=== PATIENT | male | born 1965 | race Caucasian/White ===

== ENCOUNTER 2017-06-29 07:09 | Inpatient (IN) | payer OTHER ==
[~2017-06-29] VITALS: Ht 188 cm; Wt 130.7 kg
[2017-06-29 07:48] LABS: ISTAT CREATININE 0.8 mg/dl (0.6-1.3); ISTAT IONIZED CALCIUM 1.13 mmol/l (1.12-1.32); ISTAT POTASSIUM 4.2 mEq/L (3.3-5.0)
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
[2017-06-29] MEDS ORDERED: SODIUM CHLORIDE 0.9% 1000ML 1,000 ML IV STA (08:05)
[2017-06-29] MEDS ORDERED: FENTANYL CITRATE INJ 50 MCG/1 ML 2 ML VIAL IV STA (08:05)
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
[2017-06-29] MEDS ORDERED: OPTIRAY 320 IV PRN (08:15)
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
[2017-06-29] MEDS ORDERED: BLOOD PRESSURE MED PO (08:33)
[2017-06-29] MEDS ORDERED: CLOP1TAB15 PO (08:33)
[2017-06-29] MEDS ORDERED: NVLNI SQ (08:33)
[2017-06-29] MEDS ORDERED: ASPI81TA28 PO (08:33)
[2017-06-29] MEDS ORDERED: METFORMIN PO (08:33)
[2017-06-29 08:34] LABS: BASO % 0.3 %; BASO ABS # 0.03 K/uL (0-0.2); EOS % 0.8 %; EOS ABS # 0.09 K/uL (0-0.5); HEMATOCRIT 43.4 % (42-52); HEMOGLOBIN 15.4 g/dL (14.0-18.0); IG# 0.11 K/uL (0.00-0.02); LYMPH % 13.7 %; LYMPH ABS # 1.58 K/uL (1.2-3.4); MEAN CELL VOLUME 82.7 fL (80-100); MEAN CORPUSCULAR HEMOGLOBIN 29.3 pg (25-34); MEAN CORPUSCULAR HGB CONC 35.5 g/dl (32-36); MEAN PLATELET VOLUME 9.6 fL (7.4-10.4); MONO % 4.4 %; MONO ABS # 0.51 K/uL (0.11-0.59); NEUT % 79.8 %; NEUT ABS # 9.24 K/uL (1.4-6.5); PLATELET COUNT 239 K/uL (130-400); RED CELL DISTRIBUTION WIDTH CV 12.2 % (11.5-14.5); RED CELL DISTRIBUTION WIDTH SD 36.8 fL (36.4-46.3); WHITE BLOOD COUNT 11.56 K/uL (4.8-10.8)
[2017-06-29] MEDS ORDERED: KETOROLAC TROMETHAMINE 60 MG/2 ML VIAL IM STA (08:42)
[2017-06-29 08:45] LABS: PTT PATIENT 24.5 SECONDS (21.0-31.0)
[2017-06-29] MEDS ORDERED: HYDR-3419 PO (08:48)
[2017-06-29] MEDS ORDERED: CYCL5TAB PO (08:48)
[2017-06-29 08:54] LABS: ALBUMIN 3.5 gm/dl (3.4-5.0); CALCIUM 8.2 mg/dl (8.5-10.1); CREATININE 0.88 mg/dl (0.60-1.40); TOTAL PROTEIN 6.8 gm/dl (6.4-8.2)
[2017-06-29] MEDS ORDERED: INSULIN HUMAN REGULAR SC SCH (09:15)
[2017-06-29] MEDS ORDERED: LOSA1TAB38 PO (09:21)
[2017-06-29] MEDS ORDERED: PANT40TA PO (09:21)
[2017-06-29] MEDS ORDERED: METO-157 PO (09:21)
[2017-06-29] MEDS ORDERED: METF1000 PO (09:21)
[2017-06-29] MEDS ORDERED: METO50TA8 PO (09:21)
[2017-06-29] MEDS ORDERED: ATOR-24 PO (09:21)
[2017-06-29] MEDS ORDERED: METF-384 PO (09:21)
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
[2017-06-29] MEDS ORDERED: ACETAMINOPHEN 325 MG TAB PO PRN (10:15)
[2017-06-29] MEDS ORDERED: PHARMACY GLYCEMIC MGMT CONSULT PRN (10:28)
[2017-06-29] MEDS ORDERED: GLUCOSE 10 TABS/TUBE PO PRN (10:30)
[2017-06-29] MEDS ORDERED: DEXTROSE 50% 50 ML SYR IV PRN (10:30)
[2017-06-29] MEDS ORDERED: LABETALOL HCL IV 5 MG/ML 20ML IV PRN (10:30)
[2017-06-29] MEDS ORDERED: OXYCODONE/ACETAMINOPHEN 5-325 TAB PO PRN (10:30)
[2017-06-29] MEDS ORDERED: GLUCAGON FOR INJ 1 MG VIAL SQ PRN (10:30)
[2017-06-29] MEDS ORDERED: FAMOTIDINE IV INJ 20 MG in DEXTROSE 5% 100ML 100 ML IV PRN (10:30)
[2017-06-29] MEDS ORDERED: GLUCOSE 40% GEL 15 GM TUBE PO PRN (10:30)
[2017-06-29] MEDS ORDERED: MoRPHine SULFATE 2 MG/ML CARP IV PRN (10:30)
[2017-06-29 10:39] VITALS: BP 175/98; PULSE 103; TEMP 36.9; O2SAT 97; Ht 188 cm; Wt 130.7 kg
[2017-06-29] MEDS ORDERED: PROMETHAZINE HCL INJ 12.5 MG in SODIUM CHLORIDE 0.9% 50ML 50 ML IV PRN (10:45)
[2017-06-29] MEDS ORDERED: FAMOTIDINE IV INJ 20 MG in SYRINGE 3 ML IV PRN (11:30)
[2017-06-29] MEDS ORDERED: SODIUM CHLORIDE 0.9% 1000ML 1,000 ML IV ONE (11:30)
[2017-06-29] MEDS ORDERED: INSULIN HUMAN NPH SC ONE (11:45)
--- NOTE | 2017-06-29 12:07 | Pharmacy Progress Note ---
Glycemic Control Intl Consult Date of Service Jun 29, 2017. Scope Glycemic Pharmacist consulted by Dr iPerre on 06/29/17 for glycemic control and to write orders per [facility] inpatient glycemic control protocol Objective Weight (Kilograms): 130.700 Accuchecks BSG (last 24hrs): Test 06/29/17 08:16 06/29/17 11:45 Random Glucose 348 mg/dl (70-99) Bedside Glucose 301 mg/dl (70-99) Laboratory Data (last 24hrs) Test 06/29/17 07:35 06/29/17 08:16 Anion Gap 16.0 mmol/L 10.0 mmol/L BUN/Creatinine Ratio 10.0 Blood Urea Nitrogen 9 mg/dl Creatinine 0.88 mg/dl Potassium Level mmol/L Sodium Level 133 mmol/L White Blood Count 11.56 K/uL Red Blood Count 5.25 M/uL Hemoglobin 15.4 g/dL Hematocrit 43.4 % Mean Corpuscular Volume 82.7 fL Mean Corpuscular Hemoglobin 29.3 pg Mean Corpuscular Hemoglobin Concent 35.5 g/dl Platelet Count 239 K/uL Mean Platelet Volume 9.6 fL Neutrophils (%) (Auto) 79.8 % Lymphocytes (%) (Auto) 13.7 % Monocytes (%) (Auto) 4.4 % Eosinophils (%) (Auto) 0.8 % Basophils (%) (Auto) 0.3 % Neutrophils # (Auto) 9.24 K/uL Lymphocytes # (Auto) 1.58 K/uL Monocytes # (Auto) 0.51 K/uL Eosinophils # (Auto) 0.09 K/uL Basophils # (Auto) 0.03 K/uL HbA1c pending for 06/30/17 AM Recent Pertinent Medications Outpatient Anti-diabetic Regimen: * NPH 50 units SQ BID * Metformin 1,000mg PO QAM + 1,500mg PO QPM The patient is currently receiving: * Basal insulin: Lantus 5 units every 12 hours * Correctional Insulin: Novolog Correction per scale ACHS Goal Range: Low 120 mg/dL - High 160 mg/dL Correction Factor: 35 mg/dL/unit * Prandial insulin: Per carb ratio of 1 unit per 10 grams CHO consumed * Oral Agents: on hold for admission Assessment & Plan ASSESSMENT: * 51yo T2DM male with unknown degree of outpatient control. No recent A1c recorded. On order for tomorrow with AM labs * Spoke with patient re: outpatient diabetes regimen. He stated that he did take his NPH this morning but he did not take his metformin * BSGs/GLU significantly elevated possibly d/t stress, pain, inadequate outpatient dosing? * Pt ordered a clear liquid diet which will most likely be a significant decrease in CHO as compared to outpatient diet. Insulin orders will need titrated cautiously. * Metformin will need held for a minimum of 48hrs since patient received contrast 06/29/17. Will use NovoLog bolus insulin with CF/CR instead PLAN FOR INPATIENT GLYCEMIC CONTROL: * Holding outpatient oral diabetes medications * May resume 1-2 days prior to discharge as long as this is 48hrs after last dose of contrast * Basal insulin * Will continue NPH as basal insulin as this is what patient uses as an outpatient * Additional 20 units of NPH this AM for BSG >300 mg/dl * Then, NPH BID; dosing based on BSG for clear liquid diet and that outpatient NPH may be covering some prandial needs * BSG below 100 mg/dl --> 30 units * BSG 110-180 mg/dl --> 40 units * BSG above 180 mg/dl --> 50 units * Bolus insulin * NovoLog per scale ACHS or Q6hrs while NPO * Goal Range: Low 120 mg/dL - High 140 mg/dL * Correction Factor: 10 mg/dL/unit * Nutritional / Prandial insulin per carb ratio of 1 unit per 4 grams CHO consumed * Please note that the plan above was derived based on current level of insulin resistance and hospital stress. These recommendations are appropriate for inpatient admission only. Plan of care upon discharge will need to be reassessed to avoid potential outpatient hypo/hyperglycemia. Thank you.
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
[2017-06-29] MEDS ORDERED: FENTANYL CITRATE INJ 50 MCG/1 ML 2 ML VIAL IV PRN (12:15)
[2017-06-29] MEDS: OXYCODONE/ACETAMINOPHEN 5-325 TAB PO PRN ×3 (13:13→22:10)
[2017-06-29] MEDS: ATORVASTATIN 20 MG TAB PO SCH (13:16)
[2017-06-29] MEDS: INSULIN ASPART 100 UNITS/ML 3 ML PEN SC SCH ×3 (13:16→21:00)
[2017-06-29] MEDS: LOSARTAN POTASSIUM 50 MG TAB PO SCH (13:17)
[2017-06-29] MEDS: METOPROLOL SUCC 50MG EXT REL TAB PO SCH (13:17)
[2017-06-29] MEDS ORDERED: PERFLUTREN LIPID MICROSPHERE (DEFINITY) IV ONE (13:57)
[2017-06-29] MEDS ORDERED: COUGH DROP (SUGAR FREE) LOZ 24 LOZ/1 BOX LOZ ONE (14:52)
[2017-06-29] MEDS ORDERED: NURSING DECISION MEDICATION ORDER SCH (15:00)
[2017-06-29 15:09] VITALS: BP 162/91; PULSE 85; TEMP 37; O2SAT 95
[2017-06-29 15:30] VITALS: O2SAT 95
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
[2017-06-29] MEDS ORDERED: COUGH DROP (SUGAR FREE) LOZ 24 LOZ/1 BOX LOZ PRN (16:30)
[2017-06-29 16:45] LABS: INFLUENZA A PCR Neg for Influ A (NEG); INFLUENZA B PCR Neg for Influ B (NEG)
[2017-06-29 20:07] VITALS: BP 166/88; PULSE 86; TEMP 36.8; O2SAT 95
[2017-06-29] MEDS ORDERED: INSULIN HUMAN NPH SC SCH (21:00)
[2017-06-29] MEDS: INSULIN HUMAN NPH SC SCH (22:12)
[2017-06-30] VITALS (7 sets, daily range): BP systolic 161–177; BP diastolic 88–106; PULSE 84–88; TEMP 36.5–36.9; O2SAT 94–95
[2017-06-30] MEDS: OXYCODONE/ACETAMINOPHEN 5-325 TAB PO PRN ×3 (02:12→12:25)
[2017-06-30] MEDS: LOSARTAN POTASSIUM 50 MG TAB PO SCH (07:15)
[2017-06-30] MEDS: ATORVASTATIN 20 MG TAB PO SCH (07:15)
[2017-06-30] MEDS: METOPROLOL SUCC 50MG EXT REL TAB PO SCH (07:15)
[2017-06-30 07:49] LABS: BASO % 0.6 %; BASO ABS # 0.05 K/uL (0-0.2); EOS % 1.9 %; EOS ABS # 0.17 K/uL (0-0.5); HEMATOCRIT 40.4 % (42-52); HEMOGLOBIN 14.4 g/dL (14.0-18.0); IG# 0.06 K/uL (0.00-0.02); LYMPH % 26.3 %; LYMPH ABS # 2.34 K/uL (1.2-3.4); MEAN CELL VOLUME 82.1 fL (80-100); MEAN CORPUSCULAR HEMOGLOBIN 29.3 pg (25-34); MEAN CORPUSCULAR HGB CONC 35.6 g/dl (32-36); MEAN PLATELET VOLUME 9.4 fL (7.4-10.4); NEUT % 61.5 %; NEUT ABS # 5.48 K/uL (1.4-6.5); PLATELET COUNT 227 K/uL (130-400); RED CELL DISTRIBUTION WIDTH CV 12.6 % (11.5-14.5); RED CELL DISTRIBUTION WIDTH SD 37.7 fL (36.4-46.3)
[2017-06-30 08:25] LABS: ALBUMIN 3.2 gm/dl (3.4-5.0); CALCIUM 8.3 mg/dl (8.5-10.1); CREATININE 0.79 mg/dl (0.60-1.40); POTASSIUM 3.8 mmol/L (3.5-5.1)
[2017-06-30 08:28] LABS: TOTAL PROTEIN 6.4 gm/dl (6.4-8.2)
--- NOTE | 2017-06-30 08:51 | DIAGNOSTIC IMAGING REPORT ---
CT SCAN OF THE BRAIN WITHOUT IV CONTRAST CLINICAL HISTORY: Follow-up abnormal CT. COMPARISON STUDY: CT of the brain dated 06/29/2017. TECHNIQUE: Unenhanced axial CT scan of the brain is performed from the vertex to the skull base. A dose lowering technique was utilized adhering to the principles of ALARA. CT DOSE: 884.08 mGy.cm FINDINGS: Brain parenchyma: The brain parenchyma is normal in appearance. There is no hemorrhage, mass effect, or evidence of acute territorial ischemia by CT criteria. Mace-white matter is preserved. No extra-axial fluid collection is seen. Ventricles, sulci, cisterns: Normal in configuration. Intracranial vasculature: The visualized intracranial vasculature at the skull base is normal in appearance. Calvarium: There is no depressed calvarial fracture. Soft tissues: Right parietal scalp contusion is similar to previous. Sinuses and mastoids: There is moderate mucosal thickening with an air-fluid level seen in the left maxillary antrum. The remaining visualized paranasal sinuses are clear. The mastoid air cells are well pneumatized. Orbits: The bony orbits are grossly intact. IMPRESSION: 1. There is no hemorrhage, mass effect, or evidence of acute territorial ischemia by CT criteria. 2. Right parietal scalp injury is unchanged. 3. Left maxillary sinus disease as above. Electronically signed by: Samuel Marion M.D. 06/30/2017 8:50 AM Dictated Date/Time: 06/30/2017 8:46 AM
[2017-06-30] MEDS ORDERED: PANTOprazole SOD 40 MG TAB PO SCH (09:00)
[2017-06-30] MEDS: INSULIN ASPART 100 UNITS/ML 3 ML PEN SC SCH ×2 (09:01→12:10)
[2017-06-30] MEDS: INSULIN HUMAN NPH SC SCH (09:04)
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
[2017-06-30] MEDS ORDERED: BENZONATATE 100MG CAP PO PRN (09:30)
--- NOTE | 2017-06-30 09:34 | DIAGNOSTIC IMAGING REPORT ---
TWO VIEW CHEST CLINICAL HISTORY: Atypical chest pain. FINDINGS: PA and lateral chest radiographs are correlated with chest CT dated 06/29/2017. The heart is enlarged. The pulmonary vasculature is noncongested. Bibasilar airspace opacities likely represent atelectasis. There is no large pleural effusion and no pneumothorax is seen. The skeletal structures appear osteopenic. The bony thorax appears intact. Cholecystectomy clips are noted. IMPRESSION: Cardiomegaly with no acute cardiopulmonary abnormality. Electronically signed by: Samuel Marion M.D. 06/30/2017 9:33 AM Dictated Date/Time: 06/30/2017 9:29 AM
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
[2017-06-30] MEDS ORDERED: OXYC-57 PO (11:24)
[2017-06-30] MEDS ORDERED: BENZ100C7 PO (11:24)
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
[2017-06-30] MEDS ORDERED: INSULIN HUMAN NPH SC SCH (21:00)
[2017-07-01 06:57] LABS: HEMOGLOBIN A1C 9.4 % (4.5-5.6)
[2017-07-01] MEDS ORDERED: ASPIRIN 81 MG ECTAB PO SCH (09:00)
[2017-07-01] MEDS ORDERED: CLOPIDOGREL BISULFATE 75 MG TAB PO SCH (09:00)
== END 2017-06-30 14:21 | disposition home or self-care (01) | DRG 605 ==
LOC: EDBD 07:09 → C.EDA 07:10 → C.2T 10:23 → ENRESERV 10:33
PROVIDERS: ADMIT Internal Medicine; ATTEND Internal Medicine
DX: S20.219A Contusion of unspecified front wall of thorax, initial encounter (principal); S00.03XA Contusion of scalp, initial encounter; I16.0 Hypertensive urgency; D72.829 Elevated white blood cell count, unspecified; I25.10 Atherosclerotic heart disease of native coronary artery without angina pectoris; E11.9 Type 2 diabetes mellitus without complications; Z79.899 Other long term (current) drug therapy; Z79.84 Long term (current) use of oral hypoglycemic drugs; Z79.82 Long term (current) use of aspirin; Z95.5 Presence of coronary angioplasty implant and graft; Z87.09 Personal history of other diseases of the respiratory system; Z82.49 Family history of ischemic heart disease and other diseases of the circulatory system; Z80.42 Family history of malignant neoplasm of prostate; V58.9XXA Unspecified occupant of pick-up truck or van injured in noncollision transport accident in traffic accident, initial encounter; Y93.I9 Activity, other involving external motion; Y99.8 Other external cause status